=== PATIENT | male | born 1985 ===

== ENCOUNTER 2024-08-23 07:27 | Emergency (ER) | payer OTHER ==
[2024-08-23] MEDS: Iopamidol 612 MG/ML 100 ML Bottle IV SCH (08:57)
[2024-08-23] MEDS: Sodium Chloride 0.9% 10 ML Syringe FLUSH PRN (08:57)
== END 2024-08-23 10:02 | disposition home or self-care (01) ==
LOC: JP.ED 07:27
DX: S00.03XA Contusion of scalp, initial encounter (principal); Z88.8 Allergy status to other drugs, medicaments and biological substances; Z88.6 Allergy status to analgesic agent; V59.9XXA Occupant (driver) (passenger) of pick-up truck or van injured in unspecified traffic accident, initial encounter; Y93.01 Activity, walking, marching and hiking
CPT/HCPCS: 70450; 71260; 72125; 76377; 99283; 99284; Q9967